=== PATIENT | female | born 2000 | race Hispanic/Latino ===

== ENCOUNTER 2021-01-10 20:04 | Emergency (ER) | payer OTHER ==
[~2021-01-10] VITALS: Ht 165.1 cm; Wt 58.1 kg
[2021-01-10] MEDS ORDERED: ACETAMINOPHEN ER 650 MG TABLET PO ONE (21:00)
[2021-01-10] MEDS ORDERED: IBUPROFEN 600 MG TABLET PO ONE (21:00)
[2021-01-10] MEDS ORDERED: ACETAMINOPHEN 325 MG TAB PO ONE (21:15)
[2021-01-10] MEDS ORDERED: IBUP-2070 PO (21:29)
[2021-01-10] MEDS ORDERED: CYCL10 PO (21:29)
[2021-01-10] MEDS ORDERED: IBUPROFEN 400 MG TABLET ONE (22:07)
[2021-01-10] MEDS ORDERED: IBUPROFEN 200 MG TAB ONE (22:07)
[2021-01-10 22:21] VITALS: BP 106/68
== END 2021-01-10 22:15 | disposition home or self-care (01) ==
LOC: EDH 20:17
DX: S29.011A Strain of muscle and tendon of front wall of thorax, initial encounter (principal); S20.212A Contusion of left front wall of thorax, initial encounter; V49.49XA Driver injured in collision with other motor vehicles in traffic accident, initial encounter; Y93.89 Activity, other specified; Y92.89 Other specified places as the place of occurrence of the external cause; Y99.8 Other external cause status